=== PATIENT | female | born 1975 | race Caucasian/White ===

== ENCOUNTER 2017-09-17 17:43 | Emergency (ER) | payer BC, OTHER ==
[~2017-09-17] VITALS: Ht 170.2 cm; Wt 90.7 kg
[~2017-09-17 17:43] MED LIST: AMLODIPINE BESY10 MG PO; CARAFATE 1 GM TA1 GM PO; CARVEDILOL3.125 MG PO; CIPROFLOXACIN500 M1 PO; FLAGYL500 MG PO; FLOMAX PO; LISINOPRIL10 MG PO; NOHOMEMEDICATIONS; NORCO 5-325 TA1 EACH PO; PERCOCET 5-3251 EACH PO; PERCOCET 7.5-31 EACH PO; PHENERGAN 25 MG25 M1 PO; PREVACID 24HR15 MG PO; ZOFRAN ODT4 MG PO
[2017-09-17 18:36] LABS: ABSOLUTE BASOPHILS 0.1 thou/uL (0.0-0.2); ABSOLUTE EOSINOPHILS 0.1 thou/uL (0.0-0.7); ABSOLUTE MONOCYTES 0.7 thou/uL (0.0-1.2); ABSOLUTE NEUTROPHILS 4.4 thou/uL (1.6-8.1); EOSINOPHILS 0.9 %; HEMATOCRIT 41.1 % (37.0-47.0); HEMOGLOBIN 13.9 gm/dL (12.0-15.0); MCH 29.6 pg (26.0-34.0); MCHC 33.7 g/dL (28.0-37.0); MCV 87.8 fL (80.0-100.0); MPV 8.1 fl. (7.2-11.1); NUCLEATED RBCS 0 /100WBC; PLATELET COUNT* 258 thou/uL (150-400); POLYS 61.1 %; RBC 4.68 mil/uL (4.20-5.00); RDW-CV 12.8 % (10.5-14.5); WBC 7.2 thou/uL (4.0-11.0)
[2017-09-17 18:44] LABS: CALCIUM 8.5 mg/dL (8.5-10.1); CREATININE 0.7 mg/dL (0.6-1.3); POTASSIUM 3.7 mmol/L (3.5-5.1)
[2017-09-17 18:49] LABS: ALBUMIN 3.5 g/dL (3.4-5.0); TOTAL BILIRUBIN 0.3 mg/dL (<0.1-1.0); TOTAL PROTEIN 6.8 g/dL (6.4-8.2)
[2017-09-17 18:52] LABS: URINE BILIRUBIN NEGATIVE (Negative); URINE BLOOD 3+ (Negative); URINE CLARITY CLEAR; URINE COLOR YELLOW; URINE GLUCOSE-RANDOM NEGATIVE (Negative); URINE KETONES NEGATIVE (Negative); URINE LEUKOCYTES-REFLEX 1+ (Negative); URINE NITRITE-REFLEX NEGATIVE (Negative); URINE PROTEIN NEGATIVE (Negative); URINE SPECIFIC GRAVITY 1.025 (1.005-1.030); URINE UROBILINOGEN 0.2 E.U./dl (0.2-1.0)
[2017-09-17 19:06] LABS: CASTS None Seen /LPF (None Seen); CRYSTALS None Seen /LPF (None Seen); SQUAMOUS >10 Many /LPF (0-3); URINE RBC 3-10 Few /HPF (0-2); URINE WBC-REFLEX 6-15 Few /HPF (0-5)
[2017-09-17] MEDS ORDERED: TRAMADOL 50 MG50 MG PO (21:05)
[2017-09-17] MEDS ORDERED: MACROBID 100 M100 M2 PO (21:08)
[2017-09-17 21:36] VITALS: BP 159/93
== END 2017-09-17 21:42 | disposition home or self-care (01) ==
LOC: M.ERS 17:43
PROVIDERS: Nurse Practitioner Psychiatric/Mental Health
DX: M54.42 Lumbago with sciatica, left side (principal); M54.41 Lumbago with sciatica, right side; N39.0 Urinary tract infection, site not specified; I10 Essential (primary) hypertension; Z87.442 Personal history of urinary calculi

== ENCOUNTER → 2017-12-27 | Outpatient (CLI) | payer BC, OTHER ==
[~2017-12-27] MED LIST changes: +MACROBID 100 M100 M2 PO; +TRAMADOL 50 MG50 MG PO
[2017-12-27 10:49] LABS: ABSOLUTE BASOPHILS 0.1 thou/uL (0.0-0.2); ABSOLUTE LYMPHOCYTES 2.1 thou/uL (0.8-5.3); ABSOLUTE MONOCYTES 0.6 thou/uL (0.0-1.2); ABSOLUTE NEUTROPHILS 5.5 thou/uL (1.6-8.1); BASOPHILS 0.9 %; EOSINOPHILS 0.4 %; HEMATOCRIT 43.8 % (37.0-47.0); HEMOGLOBIN 14.8 gm/dL (12.0-15.0); LYMPHOCYTES 25.4 %; MCH 29.8 pg (26.0-34.0); MCHC 33.9 g/dL (28.0-37.0); MCV 87.9 fL (80.0-100.0); MONOCYTES 6.8 %; MPV 8.1 fl. (7.2-11.1); NUCLEATED RBCS 0 /100WBC; PLATELET COUNT* 281 thou/uL (150-400); POLYS 66.5 %; RBC 4.98 mil/uL (4.20-5.00); RDW-CV 12.4 % (10.5-14.5); WBC 8.2 thou/uL (4.0-11.0)
[2017-12-27 11:01] LABS: ALBUMIN 3.8 g/dL (3.4-5.0); CALCIUM 8.8 mg/dL (8.5-10.1); CREATININE 0.7 mg/dL (0.6-1.3); DIRECT BILIRUBIN 0.1 mg/dL (<0.1-0.3); TOTAL BILIRUBIN 0.3 mg/dL (<0.1-1.0); TOTAL PROTEIN 7.8 g/dL (6.4-8.2)
== END ==
LOC: M.CT 10:23
PROVIDERS: Registered Nurse Diabetes Educator
DX: K57.30 Diverticulosis of large intestine without perforation or abscess without bleeding (principal); K21.9 Gastro-esophageal reflux disease without esophagitis; R10.2 Pelvic and perineal pain; I10 Essential (primary) hypertension; Z90.49 Acquired absence of other specified parts of digestive tract

== ENCOUNTER 2018-03-30 00:28 | Emergency (ER) | payer BC, OTHER ==
[~2018-03-30] VITALS: Ht 165.1 cm; Wt 77.1 kg
[2018-03-30 00:42] LABS: URINE BILIRUBIN NEGATIVE (Negative); URINE BLOOD 3+ (Negative); URINE CLARITY SL CLOUDY; URINE COLOR YELLOW; URINE GLUCOSE-RANDOM NEGATIVE (Negative); URINE KETONES NEGATIVE (Negative); URINE LEUKOCYTES-REFLEX TRACE (Negative); URINE NITRITE-REFLEX NEGATIVE (Negative); URINE PROTEIN NEGATIVE (Negative); URINE UROBILINOGEN 0.2 E.U./dl (0.2-1.0)
[2018-03-30 00:48] LABS: BACTERIA-REFLEX None Seen /HPF (None Seen); CASTS None Seen /LPF (None Seen); MUCUS 0-3 Light strn/LPF (None Seen); SQUAMOUS >10 Many /LPF (0-3); URINE WBC-REFLEX 0-5 Rare /HPF (0-5)
[2018-03-30 00:49] LABS: AMORPHOUS URATES Moderate /LPF (None Seen)
[2018-03-30] MEDS ORDERED: ZOFRAN ODT4 MG PO (01:57)
[2018-03-30] MEDS ORDERED: PERCOCET 7.5-31 EACH PO (01:57)
[2018-03-30 02:09] VITALS: BP 150/95
== END 2018-03-30 02:09 | disposition home or self-care (01) ==
LOC: M.ERS 00:28
PROVIDERS: Emergency Medicine
DX: N20.0 Calculus of kidney (principal); I10 Essential (primary) hypertension; Z88.8 Allergy status to other drugs, medicaments and biological substances

== ENCOUNTER → 2018-08-06 | Outpatient (CLI) | payer BC, OTHER | LOC: M.RAD 15:47 | DX: R04.2 Hemoptysis (principal); Z91.048 Other nonmedicinal substance allergy status ==

== ENCOUNTER → 2018-11-28 | Outpatient (CLI) | payer BC, OTHER | LOC: M.ULTRA 13:27 | DX: I15.9 Secondary hypertension, unspecified (principal); Z87.442 Personal history of urinary calculi ==

== ENCOUNTER 2019-03-31 11:17 | Inpatient (IN) | payer BC, OTHER ==
[~2019-03-31] VITALS: Ht 170.2 cm; Wt 98.8 kg
[2019-03-31 12:30] VITALS: BP 190/117
--- NOTE | 2019-03-31 14:41 | EKG ---
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: : 1975 Requested By: Beka Dowling Order Number: [id number] Luda MD: Alfonso Reynolds Measurements Intervals Mcdaniels Rate: 84 P: 35 OR: 128 QRS: 7 QRSD: 92 T: 31 QT: 397 QTc: 470 Interpretive Statements Sinus rhythm Consider left ventricular hypertrophy Compared to ECG 02/22/2017 16:08:53 Sinus tachycardia no longer present Electronically Signed On 03-31-2019 14:40:57 RIGGING UP WORKER by Alfonso Reynolds [email or web address] <ELECTRONICALLY SIGNED> By: Alfonso Reynolds MD, [facility] 03/31/19 1440 1425 1425 Alfonso Reynolds MD, [facility] /EPI
[2019-03-31 16:05] LABS: ABSOLUTE LYMPHOCYTES 1.7 thou/uL (0.8-5.3); ABSOLUTE MONOCYTES 0.4 thou/uL (0.0-1.2); ABSOLUTE NEUTROPHILS 5.3 thou/uL (1.6-8.1); BASOPHILS 0.6 %; EOSINOPHILS 0.3 %; HEMOGLOBIN 14.8 gm/dL (12.0-15.0); LYMPHOCYTES 22.2 %; MCH 30.1 pg (26.0-34.0); MCHC 34.3 g/dL (28.0-37.0); MCV 87.6 fL (80.0-100.0); MONOCYTES 5.9 %; MPV 9.1 fl. (7.2-11.1); NUCLEATED RBCS 0 /100WBC; PLATELET COUNT* 252 thou/uL (150-400); RDW-CV 12.8 % (10.5-14.5); WBC 7.5 thou/uL (4.0-11.0)
[2019-03-31 16:16] LABS: ALBUMIN 3.6 g/dL (3.4-5.0); CALCIUM 8.8 mg/dL (8.5-10.1); CREATININE 0.7 mg/dL (0.6-1.3); POTASSIUM 3.8 mmol/L (3.5-5.1); TOTAL BILIRUBIN 0.5 mg/dL (<0.1-1.0); TOTAL PROTEIN 6.5 g/dL (6.4-8.2)
[2019-03-31 16:31] VITALS: BP 150/93
[2019-03-31 19:40] VITALS: BP 173/108
[2019-04-01] VITALS: BP 129/63
[2019-04-01 04:00] VITALS: BP 109/65
[2019-04-01 08:00] VITALS: BP 171/103
[2019-04-01 11:26] VITALS: BP 129/75
--- NOTE | 2019-04-01 15:16 | 2DMMODE ---
[place] [address] 2 D/M-MODE ECHOCARDIOGRAM Name: KAT HARTLEY Room: [place] [address] ADM IN [facility]#: [id number] Admission: 03/31/19 Attend Phys: Beka Dowling Discharge: Date of : 75 Date of Service: 04/01/19 1516 Report #: [id number] THIS REPORT FOR: //name// ADDENDUM APPROVED REPORT Study performed: 04/01/2019 10:40:29 EXAM: Comprehensive 2D, Doppler, and color-flow Echocardiogram Patient Location: In-Patient Room #: [facility] Status: routine BSA: 2.07 HR: 69 bpm BP: 151/863 mmHg Rhythm: NSR Other Information Study Quality: Excellent Indications Chest Pain Hypertension/HDD 2D Dimensions IVSd: 10.48 (7-11mm) LVOT Diam: 21.34 (18-24mm) LVDd: 49.26 mm PWd: 11.42 (7-11mm) Ascending Ao: 29.27 (22-36mm) LVDs: 35.68 (25-40mm) Aortic Root: 32.53 mm Volumes Left Atrial Volume (Systole) LA ESV Index: 27.20 mL/m2 Aortic Valve AoV Peak Rayf.: 1.42 m/s AO Peak Gr.: 8.11 mmHg LVOT Max P.19 mmHg AO Mean Gr.: 4.22 mmHg LVOT Mean P.03 mmHg LVOT Max V: 1.14 m/s AO V2 VTI: 25.90 cm LVOT Mean V: 0.64 m/s SKYE (VTI): 3.14 cm2 LVOT V1 VTI: 22.74 cm Mitral Valve E/A Ratio: 1.15 MV Decel. Time: 232.06 [place] [address] 2 D/M-MODE ECHOCARDIOGRAM Name: KAT HARTLEY Room: [address] IN .R.#: [id number] Admission: 03/31/19 Attend Phys: Beka Dowling Discharge: Date of : 75 Date of Service: 04/01/19 1516 Report #: [id number] MV E Max Rafy.: 0.76 m/s MV PHT: 67.30 ms MVA (PHT): 3.27 cm2 TDI E/Lateral E': 6.91 E/Medial E': 6.91 Medial E' Rafy.: 0.11 m/s Lateral E' Rafy.: 0.11 m/s Pulmonary Valve PV Peak Rafy.: 0.98 m/s PV Peak Gr.: 3.82 mmHg Left Ventricle The left ventricle is normal size. There is normal LV segmental wall motion. There is normal left ventricular wall thickness. Left ventricular systolic function is normal. The left ventricular ejection fraction is within the normal range. LVEF is 55-60%. Right Ventricle The right ventricle is normal size. The right ventricular systolic function is normal. Atria The left atrium size is normal. The right atrium size is normal. Aortic Valve The aortic valve is normal in structure. No aortic regurgitation is present. There is no aortic valvular stenosis. Mitral Valve The mitral valve is normal in structure. Trace mitral regurgitation. No evidence of mitral valve stenosis. Tricuspid Valve The tricuspid valve is normal in structure. Trace tricuspid regurgitation. Pulmonic Valve The pulmonary valve is normal in structure. There is no pulmonic valvular regurgitation. Great Vessels The aortic root is normal in size. IVC is normal in size and collapses >50% [place] [address] 2 D/M-MODE ECHOCARDIOGRAM Name: KAT HARTLEYN Room: [address] IN [facility]#: [id number] Admission: 03/31/19 Attend Phys: Beka Dowling Discharge: Date of : 75 Date of Service: 04/01/19 1516 Report #: [id number] Pericardium There is no pericardial effusion. <Conclusion> Left ventricular systolic function is normal. The left ventricular ejection fraction is within the normal range. <ELECTRONICALLY SIGNED> By: Alfonso Reynolds MD, FACC 04/01/19 151 15 15 Alfonso Reynolds MD, FAC /INF
[2019-04-01 16:00] VITALS: BP 152/92
[2019-04-01 20:00] VITALS: BP 147/90
[2019-04-02] VITALS: BP 103/50
[2019-04-02 04:00] VITALS: BP 92/46
[2019-04-02 07:30] VITALS: BP 118/71
[2019-04-02] MEDS ORDERED: HYDRALAZINE 10M10 MG PO (09:51)
[2019-04-02] MEDS ORDERED: COZAAR 25 MG TA25 M2 PO (09:52)
[2019-04-02] MEDS ORDERED: MAXZIDE-25 MG1 EACH PO (09:53)
[2019-04-02 09:56] VITALS: BP 118/71
== END 2019-04-02 10:40 | disposition home or self-care (01) | DRG 305 ==
LOC: M.2W 11:17
PROVIDERS: ADMIT Internal Medicine
DX: I16.1 Hypertensive emergency (principal); I10 Essential (primary) hypertension; Z87.442 Personal history of urinary calculi; Z82.49 Family history of ischemic heart disease and other diseases of the circulatory system; Z79.899 Other long term (current) drug therapy

== ENCOUNTER 2019-05-25 05:33 | Observation (INO) | payer BC, OTHER ==
[~2019-05-25] VITALS: Ht 172.7 cm; Wt 90.7 kg
--- NOTE | ~2019-05-25 | OP ---
[address] [address] OPERATIVE REPORT Name: KAT HARTLEY Room: [address] M.R.#: [id number] Admission: 05/25/19 Attend Phys: Violetta De La O MD Discharge: Date of : 75 Report #: [id number] THIS REPORT FOR: //name// CC: Alfonso De La O DATE OF SERVICE: 05/26/2019 INDICATION FOR PROCEDURE: The patient is a 43-year-old female who was admitted through the Emergency Department with right-sided flank pain. Evaluation revealed a 5.5 mm right distal ureteral calculus. After attempting conservative approach for 24 hours the patient continued to have discomfort and chose to proceed with ureteroscopic stone extraction. PREOPERATIVE DIAGNOSIS: Right ureteral calculus. POSTOPERATIVE DIAGNOSIS: Right ureteral calculus. PROCEDURE: Cystoscopy, right ureteroscopic stone extraction with holmium laser lithotripsy, right stent placement. SURGEON: Alfonso Angeles MD ANESTHESIA: General. COMPLICATIONS: None. ESTIMATED BLOOD LOSS: None. PROCEDURE IN DETAIL: The patient was consented for the above procedure. She was given broad spectrum IV antibiotics preoperatively. She was given general anesthetic, placed in dorsal lithotomy position. She was prepped and draped in the usual sterile fashion over the genitalia. Cystoscopy was performed with a 21-Czech sheath and 30-degree lens, which revealed normal anterior urethra with mild stenosis. Examination of the bladder itself revealed no ulcerations or tumors. The stone could be seen just inside the right ureteral orifice so a 0.035 floppy-tipped guidewire was passed up the right ureter beside the stone. The cystoscope was removed. The semirigid ureteroscope was used to perform ureteroscopy alongside the wire. The stone was then broken up into a removable size pieces with a 200 micron holmium laser and these pieces were then removed from the distal ureter and deposited into the bladder. After completely removing the stones, the ureteroscope was removed. A 4.8 x 26 double-J stent was passed over the wire with good curl noted in the renal pelvis and in the bladder. This was confirmed with fluoroscopy and cystoscopy. The bladder was then drained with the stone fragments were removed through the sheath and then the scope was removed. Lidocaine gel was placed [place] [address] OPERATIVE REPORT Name: KAT HARTLEY [address] [id number] Admission: 05/25/19 Attend Phys: Violetta De La O MD Discharge: Date of : 75 Report #: [id number] anesthesia. She was awakened and sent to recovery room where she remained in stable condition. We will plan to see her in the office in 1 week for stent removal. By: [id number] Lotus Angeles MD /marty
[~2019-05-25 05:33] MED LIST changes: +COZAAR 25 MG TA25 M2 PO; +HYDRALAZINE 10M10 MG PO; +MAXZIDE-25 MG1 EACH PO
[2019-05-25 05:37] VITALS: BP 185/99
[2019-05-25 06:18] LABS: ABSOLUTE BASOPHILS 0.1 thou/uL (0.0-0.2); ABSOLUTE EOSINOPHILS 0.1 thou/uL (0.0-0.7); ABSOLUTE LYMPHOCYTES 2.3 thou/uL (0.8-5.3); ABSOLUTE MONOCYTES 0.7 thou/uL (0.0-1.2); ABSOLUTE NEUTROPHILS 4.8 thou/uL (1.6-8.1); BASOPHILS 0.7 %; EOSINOPHILS 1.2 %; HEMATOCRIT 41.8 % (37.0-47.0); HEMOGLOBIN 14.6 gm/dL (12.0-15.0); LYMPHOCYTES 29.1 %; MCH 30.6 pg (26.0-34.0); MCHC 34.9 g/dL (28.0-37.0); MCV 87.7 fL (80.0-100.0); MONOCYTES 8.7 %; MPV 7.9 fl. (7.2-11.1); NUCLEATED RBCS 0 /100WBC; PLATELET COUNT* 310 thou/uL (150-400); POLYS 60.3 %; RBC 4.77 mil/uL (4.20-5.00); RDW-CV 13.1 % (10.5-14.5); WBC 7.9 thou/uL (4.0-11.0)
[2019-05-25 06:19] LABS: URINE BILIRUBIN NEGATIVE (Negative); URINE BLOOD 3+ (Negative); URINE CLARITY CLEAR; URINE COLOR ORANGE; URINE GLUCOSE-RANDOM 1+ (Negative); URINE KETONES TRACE (Negative); URINE LEUKOCYTES-REFLEX TRACE (Negative); URINE PROTEIN 3+ (Negative); URINE UROBILINOGEN >= 8.0 E.U./dl (0.2-1.0)
[2019-05-25 06:20] LABS: URINE NITRITE-REFLEX POSITIVE (Negative)
[2019-05-25 06:21] LABS: CALCIUM 8.8 mg/dL (8.5-10.1); CREATININE 0.8 mg/dL (0.6-1.3); POTASSIUM 3.4 mmol/L (3.5-5.1)
[2019-05-25 06:26] LABS: ALBUMIN 3.9 g/dL (3.4-5.0); TOTAL PROTEIN 7.4 g/dL (6.4-8.2)
[2019-05-25 06:37] LABS: CASTS None Seen /LPF (None Seen); CRYSTALS None Seen /LPF (None Seen); MUCUS None Seen strn/LPF (None Seen); SQUAMOUS >10 Many /LPF (0-3); URINE WBC-REFLEX 0-5 Rare /HPF (0-5)
[2019-05-25 07:29] LABS: TOTAL BILIRUBIN 0.4 mg/dL (<0.1-1.0)
[2019-05-25 13:39] VITALS: BP 155/79
[2019-05-25 16:00] VITALS: BP 149/81
--- NOTE | 2019-05-25 18:10 | NUR ---
PT ARRIVED FROM ED ABOUT 1320. VITALS STABLE. PT STABLE. IV PATENT, INFUSING. PAIN PARTIALLY CONROLLED WITH FENTANYL AND NORCO. NAUSEA CONTROLLED WITH ZOFRAN. TOLERATING DIET. WILL BE NPO AT MIDNIGHT PER UROLOGY. SELF CATH TRAY IN ROOM, PT SELF CATHS AT HOME. DAUGHTER AT BEDSIDE. CALL LIGHT WITHIN REACH. [facility].
[2019-05-25 20:07] VITALS: BP 142/79
[2019-05-26 03:50] LABS: HEMATOCRIT 33.1 % (37.0-47.0); MCH 30.5 pg (26.0-34.0); MCHC 34.6 g/dL (28.0-37.0); MCV 88.2 fL (80.0-100.0); MPV 8.1 fl. (7.2-11.1); RBC 3.75 mil/uL (4.20-5.00); RDW-CV 13.2 % (10.5-14.5); WBC 4.9 thou/uL (4.0-11.0)
[2019-05-26 04:00] LABS: CALCIUM 7.6 mg/dL (8.5-10.1); CREATININE 0.7 mg/dL (0.6-1.3); MAGNESIUM 1.8 mg/dL (1.8-2.4); POTASSIUM 3.3 mmol/L (3.5-5.1)
[2019-05-26 04:19] LABS: HEMOGLOBIN 11.4 gm/dL (12.0-15.0)
--- NOTE | 2019-05-26 05:09 | NUR ---
RECEIVING PAIN MEDS FINTANYL Q2 AND HYDROCODONE Q3. SHE HAD A DIFFICULT NIGHT TRYING TO GET COMFORTABLE AND SLEEP. SHE HAS BEEN NPO SINCE MIDNIGHT AND FLUIDS RUNNING AT 150 MLS. SHE STRAIGHT CATH HERSELF AND DID NOT REPORT ANY ISSUE. UROLOGY IS ON FOR CONSULT WILL CONTINUE PLAN OF CARE.
[2019-05-26] MEDS ORDERED: FLOMAX0.4 MG PO (10:20)
[2019-05-26] MEDS ORDERED: CIPRO500 M1 PO (10:20)
[2019-05-26] MEDS ORDERED: HYDROCODON-ACE1 EAC7 PO (10:20)
[2019-05-26 15:00] VITALS: BP 154/73
--- NOTE | 2019-05-26 18:15 | NUR ---
PT ARRIVED BACK TO FLOOR FROM PACU ABOUT 174. PT STABLE. VITALS STABLE. DENIED PAIN. DENIED N/V. FOOD AND DRINKS GIVEN. UP AD BERNARDINO. DAUGHTER IN ROOM. CALL LIGHT WITHIN REACH. WILL CONTINUE TO MONITOR.
[2019-05-26 18:33] VITALS: BP 154/73
--- NOTE | 2019-05-26 19:02 | NUR ---
PT DISCHARGED AT 1900 TO HOME WITH DAUGHTER. VITALS STABLE. PAIN CONTROLLED. PRESCRIPTIONS EFAXED BY NAUSEA CONTROLLED. TOLERATED DRINK AND SNACKS. PERSONAL BELONGINGS SENT WITH PT. IV OUT
== END 2019-05-26 19:03 | disposition home or self-care (01) ==
LOC: M.ERS 05:33 → M.TBA-ER 10:04 → M.ORTHSURG 10:04 → M.TBA-ER 10:04 → M.ORTHSURG 13:36
PROVIDERS: Personal Emergency Response Attendant; ADMIT Internal Medicine
DX: N20.1 Calculus of ureter (principal); N39.0 Urinary tract infection, site not specified; I10 Essential (primary) hypertension; R33.9 Retention of urine, unspecified; Z79.899 Other long term (current) drug therapy